=== PATIENT | male | born 2000 | race Caucasian/White ===

== ENCOUNTER 2020-02-15 19:19 | Emergency (ER) | payer SELFPAY ==
[~2020-02-15] VITALS: Ht 177.8 cm; Wt 59.0 kg
--- NOTE | 2020-02-15 21:35 | RAD ---
Exam: Right foot 3 views INDICATION: Right foot pain after drum fell on it TECHNIQUE: Frontal, lateral and oblique views of the right foot Comparisons: None FINDINGS: Mild soft tissue swelling along the dorsum of the forefoot. Bone mineralization is normal. No acute or healed fractures. Joint spaces are well-maintained. IMPRESSION: Mild soft tissue swelling along the dorsum of the forefoot without underlying osseous abnormality identified. Electronically signed by: Osman Shah MD (02/15/2020 9:31 PM) JORDAN
[2020-02-15 21:45] VITALS: BP 143/80
[2020-02-15] MEDS ORDERED: NAPR-514 PO (22:42)
--- NOTE | 2020-02-15 22:42 | PHYS DOC ---
Past Medical History Past Medical History: No Pertinent History Past Surgical History: Other Additional Past Surgical Histo: R HAND Smoking Status: Never Smoker Alcohol Use: None General Adult EDM: Chief Complaint: FOOT INJURY PAIN HPI: HPI: Patient is a 19 year old male, accompanied by a friend, who presents to the emergency department with complaints of right foot pain after a 300 pound metal drum fell on top of his right foot. Patient reports he was at work today when the incident happened. He complains of swelling and bruising to the top of his right foot. The patient states he has been able to bear weight but the pain increases with weightbearing. He denies any numbness, tingling, or weakness of the affected extremity. He currently rates his pain at a 5 out of 10 on the pain scale, he reports pain increases with palpation and weightbearing, he denies radiation of the pain. Review of Systems: Review of Systems: Complete ROS is negative unless otherwise stated in the HPI. Heart Score: Risk Factors: Risk Factors: DM, Current or recent (<one month) smoker, HTN, HLP, family history of CAD, obesity. Risk Scores: Score 0 - 3: 2.5% MACE over next 6 weeks - Discharge Home Score 4 - 6: 20.3% MACE over next 6 weeks - Admit for Clinical Observation Score 7 - 10: 72.7% MACE over next 6 weeks - Early Invasive Strategies Allergies: Allergies: Allergies Coded Allergies Type Severity Reaction Last Updated Verified No Known Drug Allergies 02/15/20 No Physical Exam: PE: Constitutional: Well developed, well nourished, no acute distress, non-toxic appearance. [] HENT: Normocephalic, atraumatic, bilateral external ears normal, nose normal. [] Eyes: PERRLA, EOMI, conjunctiva normal, no discharge. [] Neck: Normal range of motion, no stridor. [] Cardiovascular:Heart rate regular rhythm Lungs & Thorax: Respirations even and unlabored, no retractions, no respiratory distress Skin: Warm, dry, no erythema, no rash; bruising noted to dorsal right forefoot. [] Extremities: Right foot: Anterior tenderness to palpation, no obvious deformity, no crepitus, 1+ edema, cap refill less than 2 seconds, sensation intact no cyanosis, ROM intact, 2+ pedal pulse Neurologic: Alert and oriented X 3, no focal deficits noted. [] Psychologic: Affect normal, judgement normal, mood normal. [] Current Patient Data: Vital Signs: Vital Signs Date Time Temp Pulse Resp B/P (MAP) Pulse Ox O2 Delivery O2 Flow Rate FiO2 02/15/20 21:45 98.3 92 18 143/80 (101) 100 Room Air 98.3 EKG: EKG: [] Radiology/Procedures: Radiology/Procedures: PROCEDURE: FOOT RIGHT 3V Exam: Right foot 3 views INDICATION: Right foot pain after drum fell on it TECHNIQUE: Frontal, lateral and oblique views of the right foot Comparisons: None FINDINGS: Mild soft tissue swelling along the dorsum of the forefoot. Bone mineralization is normal. No acute or healed fractures. Joint spaces are well-maintained. IMPRESSION: Mild soft tissue swelling along the dorsum of the forefoot without underlying osseous abnormality identified. [] Course & Med Decision Making: Course & Med Decision Making Pertinent Labs and Imaging studies reviewed. (See chart for details) [] Dragon Disclaimer: Dragon Disclaimer: This electronic medical record was generated, in whole or in part, using a voice recognition dictation system. Departure Departure Impression: Primary Impression: Contusion of right foot, initial encounter Additional Impression: Acute pain of right foot Disposition: 01 DC HOME SELF CARE/HOMELESS Condition: STABLE Referrals: TAHIR DIANA MD Patient Instructions: Foot Contusion, [id number] Additional Instructions: Fill the prescription and use it as directed. You may also take Tylenol, do not take ibuprofen while taking naproxen. Wear the Jose M wrap and postop shoe that was provided as needed for comfort. Recommend rest, ice, and elevation of the affected foot. Call Dr. Diana's office tomorrow for follow-up appointment, return to the ER if symptoms worsen or you are no longer able to bear weight. Scripts Naproxen (NAPROXEN) 500 Mg Tablet 1 TAB PO BID PRN for PAIN for 10 Days, #20 TAB 0 Refills Prov: DRE COLON APRN 02/15/20 DRE COLON APRN Feb 15, 2020 22:42
== END 2020-02-15 23:00 | disposition home or self-care (01) ==
LOC: ER 19:19
DX: S90.31XA Contusion of right foot, initial encounter (principal); R60.0 Localized edema; Z98.890 Other specified postprocedural states; W18.39XA Other fall on same level, initial encounter; Y93.89 Activity, other specified; Y92.89 Other specified places as the place of occurrence of the external cause; Y99.8 Other external cause status
CPT/HCPCS: 29515; 73630; 99283